=== PATIENT | female | born 1990 | race Two or more races ===

== ENCOUNTER 2019-02-11 15:03 | Observation (INO) | payer SELFPAY ==
[2019-02-11] MEDS ORDERED: IV RINGERS,LACTATED 1000ML 1,000 ML IV SCH (16:05)
== END 2019-02-11 17:04 | disposition home or self-care (01) ==
LOC: INTOOBSV 15:03 → 3 SO LND 15:03
PROVIDERS: ADMIT Obstetrics & Gynecology; ATTEND Obstetrics & Gynecology
DX: O62.9 Abnormality of forces of labor, unspecified (principal); Z3A.39 39 weeks gestation of pregnancy
CPT/HCPCS: G0378; G0379